=== PATIENT | male | born 1965 | race Hispanic/Latino ===

== ENCOUNTER 2019-01-06 10:14 | Day surgery (SDC) | payer BC ==
[~2019-01-06 10:14] MED LIST: WATER FOR IRRIG STERILE 1,000 ML BOTTLE IR ONE; WATER FOR IRRIG STERILE 2000 ML IR ONE
[2019-01-06] MEDS ORDERED: LACTATED RINGERS 1,000 ML ONE (10:35)
[2019-01-06] MEDS ORDERED: dexAMETHasone 20 MG/5 ML VIAL ONE (10:51)
[2019-01-06] MEDS ORDERED: LIDOCAINE MPF (2%) 20 MG/1 ML VIAL 5 ML ONE (10:51)
[2019-01-06] MEDS ORDERED: ONDANSETRON 4 MG/2 ML INJ ONE (10:51)
[2019-01-06] MEDS ORDERED: fentaNYL 100 MCG/2 ML INJ ONE (10:51)
[2019-01-06] MEDS ORDERED: PROPOFOL 200 MG/20 ML VIAL IV ONE (10:51)
[2019-01-06] MEDS ORDERED: ONDANSETRON 4 MG/2 ML INJ IV PRN (10:53)
[2019-01-06] MEDS ORDERED: fentaNYL 100 MCG/2 ML INJ IV PRN (10:53)
--- NOTE | 2019-01-06 10:55 | Anesthesia Day of Surgery ---
Anesthesia Day of Surgery - Day of Surgery Patient Examined: Yes Patient H&P Reviewed: Yes Patient is NPO: Yes
--- NOTE | 2019-01-06 10:59 | Anesthesia Consultation ---
Anesthesia Consult and Med Hx Date of service: 01/06/19 - Airway Anesthetic Teeth Evaluation: Good ROM Head & Neck: Adequate Mental/Hyoid Distance: Adequate Mallampati Class: Class II Intubation Access Assessment: Good - Pre-Operative Health Status ASA Pre-Surgery Classification: ASA3 Proposed Anesthetic Plan: General - Pulmonary Hx Smoking: Yes (STOPPED X 8 MONTHS (1/2 PPD)) Hx Sleep Apnea: Yes (DX SLEEP APNEA WITH CPAP USE.) - Cardiovascular System Hx Hypertension: Yes Hx Coronary Artery Disease: No (ETT two years ago-ok per pt. Can climb two flights of stairs) - Central Nervous System Hx Psychiatric Problems: Yes - Gastrointestinal Hx Ulcer: Yes - Endocrine Hx Cirrhosis: Yes (DX 17 YRS AGO- BEING FOLLOW BY MD) Hx Non-Insulin Dependent Diabetes: Yes - Other Systems Hx Alcohol Use: Yes (HX ABUSE WITH CIRRHOSIS-DRY X 17 YRS) Hx Cancer: No
[2019-01-06] MEDS ORDERED: MIDAZOLAM 2 MG/2 ML INJ IV NR (11:00)
[2019-01-06] MEDS ORDERED: LACTATED RINGERS 1,000 ML IV SCH (11:00)
--- NOTE | 2019-01-06 13:09 | Post Operative Note ---
Date of procedure: 01/06/19 Pre-op diagnosis: R ureteral stone Post-op diagnosis: same Findings: mid ureteral stone Procedure: cysto r j stent Anesthesia: GETA Surgeon: LESVIA MENDOSA Estimated blood loss: none Pathology: none Condition: stable Disposition: PACU
--- NOTE | 2019-01-06 13:10 | Discharge Summary ---
Short Stay Discharge Plan Activity: other (no straining ) Weight Bearing Status: Full Weight Bearing Diet: low fat, low cholesterol, low salt Special Instructions: other (inc fluids ) Durable Medical Equipment Needed Upon Discharge: other (has j stent ) Follow up with: MARYANA MATA [Primary Care Provider] - 7 Days LESVIA MENDOSA MD [Staff Physician] - 7 Days
--- NOTE | 2019-01-06 13:34 | Operative Report ---
PREOPERATIVE DIAGNOSES: Hydronephrosis, right ureteral stone. POSTOPERATIVE DIAGNOSIS: Right mid ureteral stone. PROCEDURE: Cystoscopy, retrograde, right double-J stent. SURGEON: Dr. Win. ANESTHESIA: General. FINDINGS: This is a gentleman who came in with severe pain and improved. He has had already passed the stone. Ultrasound continued to show moderate hydronephrosis. He now presents for treatment. DESCRIPTION OF PROCEDURE: The patient was brought to the operating room and placed on the operating table. Following induction of anesthesia, placed in lithotomy position, prepped and draped in usual sterile fashion. Cystourethroscopy was unremarkable. A retrograde looked like the stone moved to the mid ureter. We tried to look at the disk in the room. We had to find the computer. Finally, it looked like the initial stone was in the UPJ, now it is in the mid ureter. A double-J was very tight, double-J coiled in the kidney and bladder. The patient tolerated the procedure well and brought to recovery in stable condition. JOB# [id number] TONY/CHEMA
--- NOTE | 2019-01-06 13:58 | Fluoroscopy Report ---
FLUOROSCOPY RETROGRADE UROGRAPHY HISTORY: Right ureteral stone. FINDINGS: 1.5 minutes of fluoroscopy time was provided by radiology during retrograde urography by natalya gao urologist. 9 fluoroscopic images are presented. The images demonstrate a filling defect in the mid right ureter near the level of L3 consistent with a mildly obstructing right ureteral stone. Subseque nt images demonstrate right ureteral stent placement with good drainage of the right collecting syste m on the final image. The left retrograde pyelogram is within normal limits. IMPRESSION: Right ureteral stone. Right ureteral stent placement. Signer Name: Chaim Barrientos Jr, MD Signed: 01/06/2019 1:53 PM Workstation Name: [id number]
[2019-01-06 14:01] VITALS: BP 120/79
--- NOTE | 2019-01-06 20:28 | Post Anesthesia Evaluation ---
- Post Anesthesia Evaluation Patient Participated: Yes Airway Patent: Yes Stable Respiratory Function: Yes Nausea/Vomiting: No Temp > 96.8F: Yes Pain Manageable: Yes Adequeate Hydration: Yes Anesthesia Complications: No Block Receding Appropriately: Not Applicable Patient on Ventilator: No
== END 2019-01-06 10:15 | disposition home or self-care (01) ==
LOC: OR 10:14
PROVIDERS: ATTEND Urology
DX: N13.2 Hydronephrosis with renal and ureteral calculous obstruction (principal); E78.00 Pure hypercholesterolemia, unspecified; I10 Essential (primary) hypertension; G47.30 Sleep apnea, unspecified; E11.9 Type 2 diabetes mellitus without complications; F31.9 Bipolar disorder, unspecified; Z72.89 Other problems related to lifestyle; Z98.890 Other specified postprocedural states; Z79.84 Long term (current) use of oral hypoglycemic drugs; Z87.891 Personal history of nicotine dependence; Z98.49 Cataract extraction status, unspecified eye; Z88.8 Allergy status to other drugs, medicaments and biological substances
CPT/HCPCS: 52332; 74420; 82962; A4217; C1758; C1769; C2617; J1100; J1956; J2250; J2405; J2704; J3010; J7120; Q9967

== ENCOUNTER 2019-02-17 07:14 | Day surgery (SDC) | payer BC ==
--- NOTE | 2019-02-17 08:36 | Anesthesia Day of Surgery ---
Anesthesia Day of Surgery - Day of Surgery Patient Examined: Yes Patient H&P Reviewed: Yes Patient is NPO: Yes
--- NOTE | 2019-02-17 08:36 | Anesthesia Consultation ---
Anesthesia Consult and Med Hx Date of service: 02/17/19 - Airway Anesthetic Teeth Evaluation: Good ROM Head & Neck: Adequate Mental/Hyoid Distance: Adequate Mallampati Class: Class I Intubation Access Assessment: Probably Good (previous easy LMA 4; large shankar -> potential difficult mask) - Pulmonary Exam CTA: Yes - Cardiac Exam Cardiac Exam: RRR - Pre-Operative Health Status ASA Pre-Surgery Classification: ASA3 Proposed Anesthetic Plan: General - Pulmonary Hx Smoking: Yes (STOPPED X 9 MONTHS (prev 1/2 PPD)) Hx Respiratory Symptoms: No Hx Sleep Apnea: Yes (compliant with CPAP) - Cardiovascular System Hx Hypertension: Yes (took antihypertensive this morning) Hx Coronary Artery Disease: No (>4 mets functional capacity) Hx Heart Attack/AMI: No Hx Percutaneous Transluminal Coronary Angioplasty (PTCA): No - Central Nervous System CVA: No Hx Psychiatric Problems: Yes (depression) - Gastrointestinal Hx Ulcer: Yes - Endocrine Hx Renal Disease: No Hx Cirrhosis: Yes (followed by GI; no signs/symptoms of decompensation today) Hx Liver Disease: Yes Hx Non-Insulin Dependent Diabetes: Yes Hx Thyroid Disease: No - Other Systems Hx Alcohol Use: Yes (hx ETOH sober x 17yrs) Hx Substance Use: Yes (hx opioid abuse sober 17yrs) Hx Obesity: No - Additional Comments Anesthesia Medical History Comments: No hx anesthestic complications.
[2019-02-17] MEDS ORDERED: SODIUM CHLORIDE 0.9% 1000 ML 1,000 ML IV SCH (08:45)
[2019-02-17] MEDS ORDERED: MIDAZOLAM 2 MG/2 ML INJ IV NR (09:00)
[2019-02-17] MEDS ORDERED: PROPOFOL 200 MG/20 ML VIAL IV ONE (09:31)
[2019-02-17] MEDS ORDERED: LIDOCAINE MPF (2%) 20 MG/1 ML VIAL 5 ML ONE (09:31)
[2019-02-17] MEDS ORDERED: fentaNYL 100 MCG/2 ML INJ ONE ×2 (09:31→10:03)
[2019-02-17] MEDS ORDERED: IOHEXOL 300 MG/ML 50ML IV ONE (10:00)
[2019-02-17] MEDS ORDERED: PHENYLEPHRINE/NS 1,000 MCG/10 ML SYRINGE (OR USE) IV ONE (10:09)
[2019-02-17] MEDS ORDERED: SODIUM CHLORIDE 0.9% 1000 ML 1,000 ML ONE (10:09)
[2019-02-17] MEDS ORDERED: ePHEDrine SULFATE 50 MG/1 ML INJ ONE (10:28)
--- NOTE | 2019-02-17 10:50 | Post Operative Note ---
Date of procedure: 02/17/19 Pre-op diagnosis: r uereteral stone Post-op diagnosis: same Findings: same Procedure: cysto ureteroscopy laser stent Anesthesia: GETA Surgeon: LESVIA MENDOSA Estimated blood loss: none Pathology: none Condition: stable Disposition: PACU
--- NOTE | 2019-02-17 10:51 | Discharge Summary ---
Short Stay Discharge Plan Activity: other Weight Bearing Status: Full Weight Bearing Diet: low fat, low cholesterol, low salt Special Instructions: other (inc fluids ) Durable Medical Equipment Needed Upon Discharge: other (j stent ) Follow up with: MARYANA MATA [Primary Care Provider] - 7 Days LESVIA MENDOSA MD [Staff Physician] - 7 Days
[2019-02-17] MEDS: fentaNYL 100 MCG/2 ML INJ IV PRN ×3 (10:59→11:18)
--- NOTE | 2019-02-17 11:29 | Operative Report ---
PREOPERATIVE DIAGNOSIS: Impacted right upper ureteral stone. POSTOPERATIVE DIAGNOSES: Impacted right upper ureteral stone. PROCEDURE: Cystoscopy, right ureteroscopy, laser of stone, transposition of the stone, fragmentation of the stone and reinsertion double-J stent. SURGEON: Dr. Win. ANESTHESIA: General. FINDINGS: This is a gentleman who had severe pain, right flank. He now presents for treatment. All risks and implications discussed. DESCRIPTION OF PROCEDURE: The patient was brought to the operating room and placed on the operating table. Following induction of anesthesia, placed in lithotomy position, prepped and draped in usual sterile fashion. Cystourethroscopy revealed a stent, which was partially withdrawn from the meatus. A wire coiled in the upper pole of the kidney and using access ureteral balloon catheter second wire coiled in the kidney. Flexible ureteroscopy revealed the stone in the medial aspect of the right upper ureter. Once we began laser, we freed up from the ureter and the pieces went into the kidney. We followed the pieces in the kidney and I had to empty out the renal pelvis multiple times and lasered any stones that we saw. Multiple fragments were achieved. The patient tolerated the procedure well. No significant complications. A 7-Ind[place]ian double J coiled in the kidney and bladder, we left the string, brought to recovery in stable condition. JOB# [id number] TONY/CHEMA
--- NOTE | 2019-02-17 11:34 | Fluoroscopy Report ---
4 fluoroscopic images submitted Indication: Intraoperative localization Impression: 4 images of the abdomen were submitted for documentation purposes with radiology involve ment. There was a right-sided retrograde pyelogram with right-sided stent exchange. A total of 20 mL of Omnipaque 300 was used for this exam. Fluoroscopic time: 2.7 minutes Signer Name: Rashawn Lyles MD Signed: 02/17/2019 11:29 AM Workstation Name: [id number]
--- NOTE | 2019-02-17 14:12 | Post Anesthesia Evaluation ---
- Post Anesthesia Evaluation Patient Participated: Yes Airway Patent: Yes Stable Respiratory Function: Yes Nausea/Vomiting: No Temp > 96.8F: Yes Pain Manageable: Yes Adequeate Hydration: Yes Anesthesia Complications: No
[2019-02-17 16:04] VITALS: BP 117/76
== END 2019-02-17 12:22 | disposition home or self-care (01) ==
LOC: OR 07:14
PROVIDERS: ATTEND Urology
DX: N20.1 Calculus of ureter (principal); E78.00 Pure hypercholesterolemia, unspecified; I10 Essential (primary) hypertension; G47.30 Sleep apnea, unspecified; E11.9 Type 2 diabetes mellitus without complications; F31.9 Bipolar disorder, unspecified; Z72.89 Other problems related to lifestyle; Z98.890 Other specified postprocedural states; Z79.899 Other long term (current) drug therapy; Z79.84 Long term (current) use of oral hypoglycemic drugs; Z87.891 Personal history of nicotine dependence; Z98.49 Cataract extraction status, unspecified eye; Z88.8 Allergy status to other drugs, medicaments and biological substances
CPT/HCPCS: 52356; 74420; 82962; 88302; C1758; C1769; C2617; J1956; J2250; J2370; J2704; J3010; J7030; Q9967